=== PATIENT | female | born 1995 | race Caucasian/White ===

== ENCOUNTER 2018-03-21 18:51 | Inpatient (IN) | payer SELFPAY ==
[~2018-03-21] VITALS: Ht 165.1 cm; Wt 45.4 kg
--- NOTE | 2018-03-21 19:30 | NUR ---
Dr. Hayes at bedside for MSE.
[2018-03-21] MEDS ORDERED: IV NORMAL SALINE 1000 ML BAG IV ONE (19:45)
--- NOTE | 2018-03-21 20:00 | NUR ---
Pt out of ER for CT.
[2018-03-21 20:02] LABS: BASOPHILS % (AUTO) 0.3 % (0.0-2.0); EOSINOPHILS % (AUTO) 0.2 % (0.0-7.0); HEMATOCRIT 47.8 % (31.2-41.9); HEMOGLOBIN 16.9 g/dL (10.9-14.3); LYMPHOCYTES # (AUTO) 0.9 K/uL (20.0-40.0); LYMPHOCYTES % (AUTO) 12.4 % (20.5-51.5); MEAN CORPUSCULAR HEMOGLOBIN 35.9 uug (24.7-32.8); MEAN CORPUSCULAR HGB CONC 35 g/dL (32.3-35.6); MEAN CORPUSCULAR VOLUME 101.4 fL (75.5-95.3); MONOCYTES # (AUTO) 0.7 K/uL (2.0-10.0); MONOCYTES % (AUTO) 9.6 % (0.0-11.0); NEUTROPHILS # (AUTO) 5.8 K/uL (1.8-8.9); NEUTROPHILS % (AUTO) 77.5 % (38.5-71.5); PLATELET COUNT (AUTO) 290 K/uL (179-408); RED BLOOD CELL COUNT(AUTO) 4.71 MIL/uL (3.63-4.92); WHITE BLOOD COUNT (AUTO) 7.5 K/uL (3.8-11.8)
--- NOTE | 2018-03-21 20:15 | NUR ---
Pt back to ER from CT.
[2018-03-21 20:16] LABS: ETHANOL < 3 MG/DL (0-0)
[2018-03-21 20:19] LABS: ALANINE AMINOTRANSFERASE 27 U/L (14-59); ALKALINE PHOSPHATASE 51 U/L (50-136); ASPARTATE AMINOTRANSFERASE 24 U/L (15-37); BILIRUBIN,DIRECT 0.4 mg/dL (0.0-0.2); BILIRUBIN,TOTAL 2.8 mg/dL (0.2-1.0); CARBON DIOXIDE 24 mmol/L (21-32); CHLORIDE 100 mmol/L (98-107); CREATININE 0.6 mg/dL (0.6-1.3); GLUCOSE 89 mg/dL (74-106); POTASSIUM 3.7 mmol/L (3.5-5.1); TOTAL PROTEIN, SERUM 8.4 g/dL (6.4-8.2); UREA NITROGEN, BLOOD 9 mg/dL (7-18)
--- NOTE | 2018-03-21 20:20 | NUR ---
Per sister, family was moving to a new place, pt seems tired yesterday from the heat and today noticed she just was out of it, very lethargic, nonverbal, and they called 911 because they weren't sure exactly what to do anymore, thinks maybe pt very dehydrated.
[2018-03-21 20:21] LABS: ACETAMINOPHEN < 2.0 ug/mL (10-30)
[2018-03-21] MEDS ORDERED: IV NORMAL SALINE 500 ML BAG IV ONE (20:30)
[2018-03-21] MEDS ORDERED: IV NS 1000 ML 1,000 ML IV ONE (20:30)
[2018-03-21 20:59] LABS: THYROID STIMULATING HORMONE 0.883 mIU/mL (0.358-3.740)
--- NOTE | 2018-03-21 21:10 | NUR ---
Pt provided urine, sent to lab.
--- NOTE | 2018-03-21 21:11 | NUR ---
Assisted pt back to bed. Pt states she is feeling a little better.
[2018-03-21 21:20] LABS: *BLOOD, URINE 3+ (NEGATIVE); *CLARITY,URINE CLOUDY (CLEAR); *COLOR,URINE AMBER (YELLOW); *KETONES,URINE 4+ (NEGATIVE); *PROTEIN,URINE 1+ (NEGATIVE); LEUKOCYTE ESTERASE ,URINE TRACE (NEGATIVE); NITRITE, URINE NEGATIVE (NEGATIVE); PH,URINE 7.5 (5.0-8.0); UGLUCOSE NEGATIVE (NEGATIVE)
[2018-03-21 21:23] LABS: *BILIRUBIN,URIN 1+ (NEGATIVE)
[2018-03-21 21:33] LABS: *AMPHETAMINE, URINE NEGATIVE (NEGATIVE); *BARBITURATE, URINE NEGATIVE (NEGATIVE); *CANNABINOID, URINE NEGATIVE (NEGATIVE); *COCCAINE, URINE NEGATIVE (NEGATIVE); *OPIATE, URINE NEGATIVE (NEGATIVE); *PHENCYCLIDINE SCREEN,URINE NEGATIVE (NEGATIVE)
[2018-03-21 21:51] LABS: RBC,URINE TNTC /HPF (0-3)
[2018-03-21 21:52] LABS: BACTERIA,URINE NONE SEEN /HPF (NONE SEEN); SQUAMOUS EPITHELIAL CELL,UR FEW /HPF (NONE SEEN)
--- NOTE | 2018-03-21 22:16 | NUR ---
Pt able to swallow water and eat food.
--- NOTE | 2018-03-21 22:30 | NUR ---
Dr. Hayes on panel call with Dr. Guzman.
--- NOTE | 2018-03-21 22:53 | NUR ---
Passed report given to [facility] [employer].
[2018-03-21 23:00] VITALS: BP 137/91
[2018-03-21] MEDS ORDERED: ONDANSETRON 4 MG/2 ML VIAL IV PRN (23:15)
[2018-03-21] MEDS ORDERED: LORAZEPAM 2 MG/1 ML VIAL IV PRN (23:15)
[2018-03-21] MEDS ORDERED: MORPHINE SULFATE 2 MG/1 ML DISP.SYRIN IV PRN (23:15)
[2018-03-21] MEDS ORDERED: ACETAMINOPHEN 325 MG TABLET PO PRN (23:15)
--- NOTE | 2018-03-21 23:30 | NUR ---
NEW PATIENT FROM ER. ADMITTED FOR FOR AMS/FAILURE TO THRIVE. SHE'S AAOX4 VERY LETHARGIC AND WEAK. SHE DENIES PAIN OR ANY DISTRESS ON ASSESSMENT. SAFETY MEASURES IN PLACE, BED ALARM ON, CALL LIGHT LEFT WITHIN PATIENT'S REACH
[2018-03-22 04:00] VITALS: BP 130/86
--- NOTE | 2018-03-22 06:10 | NUR ---
PATIENT SLEPT WELL ON THIS SHIFT. REMAINS LETHARGIC AND WEAK. DENIES PAIN OR ACUTE DISTRESS ON THIS. VSS WNL. SAFETY MEASURES MAINTAINED AT ALL TIMES
[2018-03-22 06:16] LABS: BASOPHILS % (AUTO) 0.5 % (0.0-2.0); EOSINOPHILS % (AUTO) 0.5 % (0.0-7.0); HEMATOCRIT 39.9 % (31.2-41.9); HEMOGLOBIN 14.1 g/dL (10.9-14.3); LYMPHOCYTES # (AUTO) 1.2 K/uL (20.0-40.0); MEAN CORPUSCULAR HEMOGLOBIN 36.2 uug (24.7-32.8); MEAN CORPUSCULAR HGB CONC 35 g/dL (32.3-35.6); MEAN CORPUSCULAR VOLUME 102.6 fL (75.5-95.3); MONOCYTES # (AUTO) 0.8 K/uL (2.0-10.0); MONOCYTES % (AUTO) 12.8 % (0.0-11.0); NEUTROPHILS # (AUTO) 4.1 K/uL (1.8-8.9); NEUTROPHILS % (AUTO) 66.2 % (38.5-71.5); PLATELET COUNT (AUTO) 233 K/uL (179-408); RED BLOOD CELL COUNT(AUTO) 3.89 MIL/uL (3.63-4.92); WHITE BLOOD COUNT (AUTO) 6.2 K/uL (3.8-11.8)
[2018-03-22 07:03] LABS: BILIRUBIN,TOTAL 2.3 mg/dL (0.2-1.0); CREATININE 0.7 mg/dL (0.6-1.3); MAGNESIUM 1.9 mg/dL (1.8-2.4); PHOSPHOROUS 4.2 mg/dL (2.5-4.9); POTASSIUM 4.2 mmol/L (3.5-5.1); TOTAL PROTEIN, SERUM 6.2 g/dL (6.4-8.2)
[2018-03-22] MEDS: FAMOTIDINE 20 MG TABLET PO SCH (08:24)
[2018-03-22] MEDS: POTASSIUM CHLORIDE 20 MEQ in IV 1/2NS 1000 ML 1,000 ML IV PRN ×2 (09:54→23:15)
[2018-03-22 15:49] VITALS: BP 127/69
--- NOTE | 2018-03-22 19:33 | NUR ---
patient alert and oriented. stable condition. no sign of discomfort noted.
[2018-03-22 20:00] VITALS: BP 129/75
[2018-03-22] MEDS: CYANOCOBALAMIN 1000 MCG/ML VIAL IM SCH (20:14)
[2018-03-22] MEDS ORDERED: MELATONIN 3 MG TABLET PO SCH (23:00)
--- NOTE | 2018-03-22 23:00 | NUR ---
Patient was very withdrawn during assessment when family was in the room. Patient would respond to questions with just a head nod or "yes or no" answer. Family asked me to assess and vital signs were stable. They stated she seemed more lethargic than earlier in the day. Pt told me she is able to walk to the bathroom and was able to void. Family at bedside trying to get patient to eat. Pt was hesitant to get Vitamin B12 injection, but agreed to eventually.
--- NOTE | 2018-03-22 23:50 | NUR ---
Ativan administered to patient. She now appears more alert and is able to look me in the eyes again. Patient also given melatonin to help her sleep. Patient did not hesitate to take the medication this time. I encouraged her to eat some pudding and drink more fluids. Patient said she would try.
[2018-03-23 04:29] VITALS: BP 116/78
--- NOTE | 2018-03-23 04:31 | NUR ---
Pt continues to be asleep. No s/s distress noted. Denies pain.
[2018-03-23] MEDS: FAMOTIDINE 20 MG TABLET PO SCH (09:49)
[2018-03-23] MEDS: CYANOCOBALAMIN 1000 MCG/ML VIAL IM SCH (09:49)
[2018-03-23 11:40] VITALS: BP 117/69
[2018-03-23] MEDS ORDERED: MULT1TAB73 PO (13:12)
[2018-03-23] MEDS ORDERED: CYAN10009 PO (13:12)
--- NOTE | 2018-03-23 14:30 | NUR ---
IV D/C'D. PT. HAD SMALL BM. HOME INSTRUCTIONS REVIEWED WITH PT. PHARMACY AT BEDSIDE TO REVIEW ALL HOME RX'S, DISCHARGED TO HOME ESCORTED BY RN TO AUTO.
[2018-03-23 15:41] VITALS: BP 114/73
[2018-03-23 15:51] LABS: BILIRUBIN,DIRECT 0.4 mg/dL (0.0-0.2); BILIRUBIN,TOTAL 2.6 mg/dL (0.2-1.0); TOTAL PROTEIN, SERUM 7.4 g/dL (6.4-8.2)
--- NOTE | 2018-03-23 19:30 | NUR ---
Received patient from day shift RN. Patient stable at start of shift with no acute distress. Vital signs within range. Pertinent assessment completed. Patient appears to be slightly lethargic but able to answer questions & to communicate properly. Patient denies pain and SOB. Patient requesting for Ambien to sleep at night. Per patient, it helped her last night sleep well & feel better during the day. Will f/u with MD & ask for x1 dose of Ambien. Call light within reach of patient. Will continue to monitor through shift.
[2018-03-23 20:00] VITALS: BP 128/75
--- NOTE | 2018-03-23 20:30 | NUR ---
New order from MD Calderon Ambien 5mg PO x1 dose only. Will carry out order & continue to monitor through shift.
[2018-03-23] MEDS ORDERED: ZOLPIDEM 5 MG TABLET PO ONE (20:45)
[2018-03-24 04:05] VITALS: BP 115/73
--- NOTE | 2018-03-24 06:29 | NUR ---
Patient slept intermittently through the night. Reoriented as needed. Able to communicate her needs with me. Vital signs remained stable through shift. All meds administered as per MD order. Safety measures implemented. Call light within reach. Will endorse to day shift nurse.
[2018-03-24] MEDS: CYANOCOBALAMIN 1000 MCG/ML VIAL IM SCH (09:00)
[2018-03-24] MEDS: FAMOTIDINE 20 MG TABLET PO SCH (09:18)
[2018-03-24 11:16] VITALS: BP 100/57
[2018-03-24] MEDS ORDERED: CHOL10002 PO (11:47)
--- NOTE | 2018-03-24 14:00 | NUR ---
HOME INSTRUCTIONS REVIEWED WITH PT. AND PT'S. MOTHER AND SISTER. DISCHARGED TO MOTHER AND SISTER VIA W/C.
[2018-03-25] MEDS ORDERED: CHOLECALCIFEROL 1,000 UNIT TABLET PO SCH (09:00)
== END 2018-03-24 14:00 | disposition home or self-care (01) | DRG 922 ==
LOC: EDBD 18:53 → ER 18:53 → TELE 22:58 → MED 23:56
PROVIDERS: ADMIT Internal Medicine; ATTEND Internal Medicine
DX: T67.5XXA Heat exhaustion, unspecified, initial encounter (principal); G92 Toxic encephalopathy; R17 Unspecified jaundice; K59.00 Constipation, unspecified; E53.8 Deficiency of other specified B group vitamins; E55.9 Vitamin D deficiency, unspecified; X30.XXXA Exposure to excessive natural heat, initial encounter; Y92.9 Unspecified place or not applicable; E86.0 Dehydration; G93.89 Other specified disorders of brain; F32.9 Major depressive disorder, single episode, unspecified
CPT/HCPCS: 36415; 70450; 70551; 71045; 76705; 80307; 82306; 82746; 83550; 83735; 83970; 84100; 84443; 84703; 85025; 85730; 86140; 87086; A4663; C1758; G0480; G0480-TC; J2060; J3420; J3480; J3490; J7030; J7040